=== PATIENT | male | born 1980 | race Caucasian/White ===

== ENCOUNTER 2019-05-16 15:10 | Emergency (ER) | payer OTHER ==
--- NOTE | 2019-05-16 15:19 | ER Report ---
History and Physical Time Seen By MD: 15:16 Hx. of Stated Complaint: finger laceration HPI/ROS CHIEF COMPLAINT: Finger laceration HISTORY OF PRESENT ILLNESS: 38-year-old male patient presents to emergency room with complaint finger laceration. Patient states that he was cutting a piece of wood with a band saw when he slipped and cut his finger in the band saw. Patient states that he has significant amount of pain to the right fourth finger. He states he is not able to flex it. He did apply some pressure to it prior to coming to the emergency room. Patient states that he has a recent tetanus. He denies any fevers, chills, nausea, vomiting or diarrhea. Patient states the pain is throbbing. Patient has not taken any medication for this. He states that the accident occurred approximately 20 minutes prior to arrival. REVIEW OF SYSTEMS: Respiratory: No cough, no dyspnea. Cardiovascular: No chest pain, no palpitations. Gastrointestinal: No vomiting, no abdominal pain. Musculoskeletal: As noted above Allergies: Coded Allergies: No Known Allergies (Verified Allergy, Unknown, 05/16/19) Home Meds Active Scripts Cephalexin 500 Mg Tab (KEFLEX 500 MG TAB) 500 Mg Tablet, 500 MG PO Q6H, #28 TAB Prov:[facility] 05/16/19 Hydrocodone Bit/Acetaminophen (HYDROCODON-ACETAMINOPHEN 5-325) 1 Each Tablet, 1 EACH PO Q4-6H PRN for PAIN, #12 TAB Prov:[facility] 05/16/19 Reported Medications Insulin Lispro 100 Un/Ml Vial (HUMALOG 100 U/ML VIAL) 100 Unit/1 Ml Vial, 100 UNIT SQ SS, VIAL 05/16/19 Insulin Glargine (LANTUS) 100 Unit/Ml Soln, 19 UNIT SUBQ QDAY, ML 05/16/19 Omeprazole (OMEPRAZOLE) 40 Mg Capsule.dr, 40 MG PO QDAY, CAP 05/16/19 Gabapentin (GABAPENTIN) 300 Mg Capsule, 300 MG PO BID, CAPSULE 05/16/19 Baclofen (BACLOFEN) 10 Mg Tablet, 10 MG PO TID PRN for MUSCLE SPASMS, #30 TAB 05/16/19 Buspirone Hcl (BUSPIRONE HCL) 10 Mg Tablet, 5 MG PO BID, #10 TAB 05/16/19 Sertraline Hcl (SERTRALINE HCL) 50 Mg Tablet, 1 TAB PO QDAY, TAB 05/16/19 Past Medical/Surgical History Patient has a past medical history of diabetes. Patient denies any pertinent surgical history. Reviewed Nurses Notes: Yes Constitutional Vital Sign - Last 24 Hours 05/16/19 05/16/19 05/16/19 05/16/19 15:10 15:13 15:17 15:30 Temp 98.5 Pulse 99 101 Resp 22 B/P (MAP) 124/84 (97) 124/84 125/83 (97) Pulse Ox 93 O2 Delivery Room Air 05/16/19 05/16/19 05/16/19 05/16/19 15:40 16:00 16:10 16:15 Pulse 92 91 92 B/P (MAP) 134/88 (103) Pulse Ox 94 93 93 05/16/19 05/16/19 05/16/19 05/16/19 16:30 16:45 17:00 17:15 Pulse 92 93 B/P (MAP) 129/87 (101) 130/86 (101) Pulse Ox 94 98 05/16/19 05/16/19 05/16/19 05/16/19 17:30 17:35 18:00 18:05 Pulse 91 90 B/P (MAP) 137/90 (106) 132/88 (103) 05/16/19 05/16/19 05/16/19 05/16/19 18:30 18:35 19:00 19:30 Pulse 92 B/P (MAP) 130/85 (100) 128/88 (101) 128/76 (93) Physical Exam General Appearance: The patient is alert, has no immediate need for airway protection and no current signs of toxicity. Respiratory: Chest is non tender, lungs are clear to auscultation. Cardiac: regular rate and rhythm Gastrointestinal: Abdomen is soft and non tender, no masses, bowel sounds normal. Musculoskeletal: Neck: Neck is supple and non tender. Extremities have full range of motion and are non tender. Skin: No rashes or lesions. Patient does have significant laceration to the medial aspect of the right third finger. There are tendons which are showing, which appear to be injured. DIFFERENTIAL DIAGNOSIS: After history and physical exam differential diagnosis was considered for laceration, fracture, open fracture, ligamentous injury. Medical Decision Making Data Points Result Diagram: 05/16/19 1542 05/16/19 1542 Laboratory Hematology Test 05/16/19 15:42 Red Blood Count 4.87 M/uL (4.00-5.60) Mean Corpuscular Volume 90.7 fL (80.0-96.0) Mean Corpuscular Hemoglobin 33.5 pg (26.0-33.0) Mean Corpuscular Hemoglobin Concent 36.9 g/dL (32.0-36.0) Red Cell Distribution Width 12.4 % (11.5-14.5) Mean Platelet Volume 7.5 fL (7.2-11.1) Neutrophils (%) (Auto) 68.9 % (39.4-72.5) Lymphocytes (%) (Auto) 21.6 % (17.6-49.6) Monocytes (%) (Auto) 7.1 % (4.1-12.4) Eosinophils (%) (Auto) 1.6 % (0.4-6.7) Basophils (%) (Auto) 0.8 % (0.3-1.4) Nucleated RBC Relative Count (auto) 0.3 /100WBC Neutrophils # (Auto) 5.2 K/uL (2.0-7.4) Lymphocytes # (Auto) 1.6 K/uL (1.3-3.6) Monocytes # (Auto) 0.5 K/uL (0.3-1.0) Eosinophils # (Auto) 0.1 K/uL (0.0-0.5) Basophils # (Auto) 0.1 K/uL (0.0-0.1) Nucleated RBC Absolute Count (auto) 0.02 K/uL Sodium Level 140 mmol/L (137-145) Potassium Level 3.9 mmol/L (3.5-5.0) Chloride Level 103 mmol/L (98-107) Carbon Dioxide Level 25 mmol/L (22-30) Blood Urea Nitrogen 19 mg/dl (9-21) Creatinine 0.80 mg/dl (0.66-1.25) Glomerular Filtration Rate Calc > 60.0 Random Glucose 214 mg/dl (75-110) Calcium Level 9.2 mg/dl (8.4-10.2) Total Bilirubin 0.7 mg/dl (0.2-1.3) Aspartate Amino Transf (AST/SGOT) 49 U/L (0-35) Alanine Aminotransferase (ALT/SGPT) 48 U/L (0-56) Alkaline Phosphatase 91 U/L (0-126) Total Protein 6.9 g/dl (6.3-8.2) Albumin 4.3 g/dl (3.5-5.0) Chemistry Test 05/16/19 15:42 White Blood Count 7.5 k/uL (4.5-11.0) Red Blood Count 4.87 M/uL (4.00-5.60) Hemoglobin 16.3 g/dL (14.0-18.0) Hematocrit 44.2 % (42.0-52.0) Mean Corpuscular Volume 90.7 fL (80.0-96.0) Mean Corpuscular Hemoglobin 33.5 pg (26.0-33.0) Mean Corpuscular Hemoglobin Concent 36.9 g/dL (32.0-36.0) Red Cell Distribution Width 12.4 % (11.5-14.5) Platelet Count 242 K/uL (150-450) Mean Platelet Volume 7.5 fL (7.2-11.1) Neutrophils (%) (Auto) 68.9 % (39.4-72.5) Lymphocytes (%) (Auto) 21.6 % (17.6-49.6) Monocytes (%) (Auto) 7.1 % (4.1-12.4) Eosinophils (%) (Auto) 1.6 % (0.4-6.7) Basophils (%) (Auto) 0.8 % (0.3-1.4) Nucleated RBC Relative Count (auto) 0.3 /100WBC Neutrophils # (Auto) 5.2 K/uL (2.0-7.4) Lymphocytes # (Auto) 1.6 K/uL (1.3-3.6) Monocytes # (Auto) 0.5 K/uL (0.3-1.0) Eosinophils # (Auto) 0.1 K/uL (0.0-0.5) Basophils # (Auto) 0.1 K/uL (0.0-0.1) Nucleated RBC Absolute Count (auto) 0.02 K/uL Glomerular Filtration Rate Calc > 60.0 Calcium Level 9.2 mg/dl (8.4-10.2) Total Bilirubin 0.7 mg/dl (0.2-1.3) Aspartate Amino Transf (AST/SGOT) 49 U/L (0-35) Alanine Aminotransferase (ALT/SGPT) 48 U/L (0-56) Alkaline Phosphatase 91 U/L (0-126) Total Protein 6.9 g/dl (6.3-8.2) Albumin 4.3 g/dl (3.5-5.0) EKG/Imaging Imaging HAND COMPLETE RIGHT HISTORY: Laceration third and fourth digit, band saw ADDITIONAL HISTORY: None. COMPARISON: None. FINDINGS: 3 views were obtained of the right hand. There is disruption of the DIP joint of the fourth digit with a comminuted fracture through the proximal end of the distal phalanx along its radial margin, the fracture fragment is displaced by approximately 1 cm and is in the radial soft tissues. There is also a fracture involving the distal end of the middle phalanx also along the ulnar aspect, there appear to be multiple tiny fragments which are displaced. There is a laceration which extends to the bone. There are multiple punctate radiodensiti es in the soft tissues, difficult to tell whether these are tiny bone fragments or radiopaque foreign bodies. PIP joint is intact. MCP joint is intact. First through third and fifth digits are unremarkable. Metacarpal bones and carpal bones are within normal limits. IMPRESSION: Comminuted fractures involving the distal end of the middle phalanx and proximal end of the distal phalanx around the DIP joint with disruption of the joint and multiple bony fragments as described above. Small punctate radiopaque foreign bodies would be difficult to exclude. Report Dictated By: Odette Zambrano MD at 05/16/2019 4:11 PM Report E-Signed By: Odette Zambrano MD at 05/16/2019 4:16 PM ED Course/Re-evaluation ED Course Patient was admitted to an exam room, history and physical were obtained. Differential diagnoses were considered. On examination lungs are clear, heart is regular, abdomen soft nontender. Patient does have significant laceration to the DIP joint of the right fourth finger. He has a laceration to the tip of the right third finger. Patient states that his tetanus shot is up-to-date, receiving a just 2 months ago. An IV was started, patient received a gram of Ancef. A CBC, CMP were done which were unremarkable. X-ray of the hand was done which shows a fracture to the distal flange and the middle phalange. It appears that the laceration goes right through the joint. I discussed the case with Dr. Swain. He recommended closing it, having patient follow up with Dr. Arias. I did touch base with Dr. Arias's office, and spoke with Dr. Arias. He did review the images and felt that the joint was nonsalvageable. He recommended closing it and having the patient follow-up on Wednesday for surgery. The finger was anesthetized, cleaned and repaired described below. After cleaning it I will noted that the finger itself did appear dusky. It did have a capillary refill of 3 seconds. I touch base with Dr. Cummings, he recommended continue to monitor and they would see if the finger tip is viable on Wednesday. I discussed with the patient who verbalized understanding and agreement with plan. Patient was given a prescription for pain medication as well as antibiotics. Procedure: Laceration repair. Verbal consent was obtained from the patient. The 2 cm and 1 cm laceration on the DIP joint of the right fourth finger and the tip of the right third finger were anesthetized in the usual fashion. The wound was scrubbed, draped and explored to its base with a gloved finger. There appears to be bone fragments that are visible as well as laceration of the tendons. The wound was repaired with 14 simple interrupted sutures using 5-0 Prolene material and 6 simple interrupted sutures using 5-0 Prolene material. The wound repair was simple. The procedure was performed by myself. Decision to Disposition Date: May 16, 2019 Decision to Disposition Time: 18:55 Depart Departure Latest Vital Signs Vital Signs Date Time Temp Pulse Resp B/P (MAP) Pulse Ox O2 Delivery O2 Flow Rate FiO2 05/16/19 19:30 128/76 (93) 05/16/19 18:35 92 05/16/19 17:15 98 05/16/19 15:17 98.5 22 Room Air Impression: Primary Impression: Finger fracture, right Condition: Improved Disposition: HOME OR SELF-CARE Referrals: WILBERT ARIAS MD New Scripts Cephalexin 500 Mg Tab (KEFLEX 500 MG TAB) 500 Mg Tablet 500 MG PO Q6H, #28 TAB Prov: BHANU [facility] [employer] 05/16/19 Hydrocodone Bit/Acetaminophen (HYDROCODON-ACETAMINOPHEN 5-325) 1 Each Tablet 1 EACH PO Q4-6H PRN for PAIN, #12 TAB Prov: BHANU [facility] 05/16/19 Patient Instructions: Finger Laceration (ED) Additional Instructions: Limit activity by pain. Get plenty of rest. Change the dressing as needed. Follow up with Dr. Arias as directed. Take medication to help with the pain. Return to the ER if condition worsens. Take the antibiotics as directed. Problem Qualifiers Primary Impression: Finger fracture, right Encounter type: initial encounter Finger: ring finger Fracture type: open Phalanx: distal Fracture alignment: nondisplaced Qualified Codes: S62.664B - Nondisplaced fracture of distal phalanx of right ring finger, initial encounter for open fracture BHANU [facility] May 16, 2019 15:19
[2019-05-16] MEDS ORDERED: ceFAZolin(*) 1 GM VIAL 1 GM in NS(*) 0.9% 100 ML MINI-BAG 100 ML IV ONE (15:30)
[2019-05-16 15:51] LABS: PLATELET COUNT, AUTOMATED 242 K/uL (150-450)
[2019-05-16] MEDS ORDERED: OMEP40CA48 PO (15:59)
[2019-05-16] MEDS ORDERED: GABA-549 PO (15:59)
[2019-05-16] MEDS ORDERED: BUSP10TA95 PO (15:59)
[2019-05-16] MEDS ORDERED: BACL-1 PO (15:59)
[2019-05-16] MEDS ORDERED: LANI SUBQ (15:59)
[2019-05-16] MEDS ORDERED: SERT-184 PO (15:59)
[2019-05-16] MEDS ORDERED: INSU100V24 SQ (15:59)
--- NOTE | 2019-05-16 16:23 | RADIOLOGY IMAGING REPORT ---
[place] [facility] [place]: Helio Case : 1980 MR: [id number] V: [id number] EXAM DATE: ORDERING PHYSICIAN: BHANU [facility] TECHNOLOGIST: [place] [facility] [place] : 1980 Visit/Account:[id number] Date of Sevice: 05/16/2019 HAND COMPLETE RIGHT HISTORY: Laceration third and fourth digit, band saw ADDITIONAL HISTORY: None. COMPARISON: None. FINDINGS: 3 views were obtained of the right hand. There is disruption of the DIP joint of the fourth digit wi th a comminuted fracture through the proximal end of the distal phalanx along its radial margin, the fracture fragment is displaced by approximately 1 cm and is in the radial soft tissues. There is als o a fracture involving the distal end of the middle phalanx also along the ulnar aspect, there appear to be multiple tiny fragments which are displaced. There is a laceration which extends to the bone. There are multiple punctate radiodensities in the soft tissues, difficult to tell whether these are tiny bone fragments or radiopaque foreign bodies. PIP joint is intact. MCP joint is intact. First through third and fifth digits are unremarkable. Metacarpal bones and carpal bones are within normal limits. IMPRESSION: Comminuted fractures involving the distal end of the middle phalanx and proximal end of the distal ph alanx around the DIP joint with disruption of the joint and multiple bony fragments as described edmund rae. Small punctate radiopaque foreign bodies would be difficult to exclude. Report Dictated By: Odette Zambrano MD at 05/16/2019 4:11 PM Report E-Signed By: Odette Zambrano MD at 05/16/2019 4:16 PM WSN:[id number]
[2019-05-16] MEDS ORDERED: HYDR-385 PO (18:51)
[2019-05-16] MEDS ORDERED: CEPH500T7 PO (18:51)
[2019-05-16 19:30] VITALS: BP 128/76
== END 2019-05-16 19:44 | disposition home or self-care (01) ==
LOC: ER 16:05
DX: S62.664B Nondisplaced fracture of distal phalanx of right ring finger, initial encounter for open fracture (principal)
CPT/HCPCS: 12002; 73130; 85025; 96365; 99283; J0690; 82040; 82247; 82310; 82374; 82435; 82565; 82947; 84075; 84132; 84155; 84295; 84450; 84460; 84520

== ENCOUNTER → 2019-05-18 | Outpatient (CLI) | payer OTHER ==
[~2019-05-18] MED LIST: BACL-1 PO; BUSP10TA95 PO; CEPH500T7 PO; GABA-549 PO; HYDR-385 PO; INSU100V24 SQ; LANI SUBQ; OMEP40CA48 PO; SERT-184 PO
[2019-05-18 15:59] LABS: PLATELET COUNT, AUTOMATED 234 K/uL (150-450)
== END ==
LOC: LAB 15:26
PROVIDERS: ATTEND Anesthesiology
DX: Z01.812 Encounter for preprocedural laboratory examination (principal); S69.91XA Unspecified injury of right wrist, hand and finger(s), initial encounter; W31.2XXA Contact with powered woodworking and forming machines, initial encounter
CPT/HCPCS: 36415; 82040; 82247; 82310; 82374; 82435; 82565; 82947; 83036; 84075; 84132; 84155; 84295; 84450; 84460; 84520; 85025

== ENCOUNTER 2019-06-19 18:49 | Emergency (ER) | payer OTHER ==
--- NOTE | 2019-06-19 18:54 | ER Report ---
History and Physical Time Seen By MD: 18:50 HPI/ROS CHIEF COMPLAINT: finger infection HISTORY OF PRESENT ILLNESS: This is a 38 year old male. He has had a finger injury and was seeing Dr. Bellamy. He has been doing well and has been improving. At first, the thought was that he would loose the finger. Last appointment on was doing good. Taken off of Cephalexin at that visit. The last 24 hours, redness, warmth, swelling and pain have increased, spreading up the finger. The area of dark, necrotic tissue is the same, perhaps more moist. No fevers or chills noted. Dr. Bellamy is out of town this week, the patient has an appointment next week on . Allergies: Coded Allergies: No Known Allergies (Verified Allergy, Unknown, 06/19/19) Home Meds Active Scripts Amoxicillin/Pot Clav 875-125 Mg Tab (AUGMENTIN 875-125 TABLET) 1 Each Tablet, 1 TAB PO Q12H, #20 TAB 0 Refills Prov:OLGA PATTERSON MD 06/19/19 Reported Medications Oxycodone Hcl (OXYCONTIN) 10 Mg Tab.er.12h, 10 MG PO Q12H, TAB 06/19/19 Insulin Lispro 100 Un/Ml Vial (HUMALOG 100 U/ML VIAL) 100 Unit/1 Ml Vial, 100 UNIT SQ SS, VIAL 05/16/19 Insulin Glargine (LANTUS) 100 Unit/Ml Soln, 19 UNIT SUBQ QDAY, ML 05/16/19 Omeprazole (OMEPRAZOLE) 40 Mg Capsule.dr, 40 MG PO QDAY, CAP 05/16/19 Gabapentin (GABAPENTIN) 300 Mg Capsule, 300 MG PO BID, CAPSULE 05/16/19 Baclofen (BACLOFEN) 10 Mg Tablet, 10 MG PO TID PRN for MUSCLE SPASMS, #30 TAB 05/16/19 Buspirone Hcl (BUSPIRONE HCL) 10 Mg Tablet, 5 MG PO BID, #10 TAB 05/16/19 Sertraline Hcl (SERTRALINE HCL) 50 Mg Tablet, 1 TAB PO QDAY, TAB 05/16/19 Discontinued Scripts Cephalexin 500 Mg Tab (KEFLEX 500 MG TAB) 500 Mg Tablet, 500 MG PO Q6H, #28 TAB Prov:BHANU [facility] 7/9/19 Hydrocodone Bit/Acetaminophen (HYDROCODON-ACETAMINOPHEN 5-325) 1 Each Tablet, 1 EACH PO Q4-6H PRN for PAIN, #12 TAB Prov:BHANU [facility] [employer] 05/16/19 Reviewed Nurses Notes: Yes Constitutional Vital Sign - Last 24 Hours 06/19/19 06/19/19 06/19/19 06/19/19 18:59 19:00 19:04 19:19 Temp 98.6 Pulse 73 80 75 Resp 14 B/P (MAP) 122/84 135/84 (101) Pulse Ox 94 92 93 O2 Delivery Room Air 06/19/19 06/19/19 06/19/19 06/19/19 19:34 19:49 20:00 20:04 Pulse 76 71 73 B/P (MAP) 124/85 (98) Pulse Ox 93 94 94 06/19/19 06/19/19 06/19/19 06/19/19 20:19 20:30 20:45 21:00 Pulse 70 71 79 B/P (MAP) 122/74 (90) 124/83 (97) Pulse Ox 92 95 94 91 Physical Exam General: Alert, no acute distress. Skin: Necrotic skin overlying the wound with sutures in place. Moist, but no purulence noted. Musculoskeletal: Painful, and the DIP with screw fixation, but otherwise normal movement of the finger. Neuro: No change in sensation of the finger, some deficits from injury, increase pain. Cardio: Otherwise normal peripheral perfusion. Medical Decision Making Data Points Result Diagram: 06/19/19190906/19/191909 Laboratory Hematology Test 06/19/19 19:10 White Blood Count 5.3 k/uL (4.5-11.0) Red Blood Count 4.63 M/uL (4.00-5.60) Hemoglobin 15.1 g/dL (14.0-18.0) Hematocrit 42.0 % (42.0-52.0) Mean Corpuscular Volume 90.8 fL (80.0-96.0) Mean Corpuscular Hemoglobin 32.7 pg (26.0-33.0) Mean Corpuscular Hemoglobin Concent 36.0 g/dL (32.0-36.0) Red Cell Distribution Width 12.0 % (11.5-14.5) Platelet Count 200 K/uL (150-450) Mean Platelet Volume 7.2 fL (7.2-11.1) Neutrophils (%) (Auto) 58.5 % (39.4-72.5) Lymphocytes (%) (Auto) 28.9 % (17.6-49.6) Monocytes (%) (Auto) 8.7 % (4.1-12.4) Eosinophils (%) (Auto) 2.7 % (0.4-6.7) Basophils (%) (Auto) 1.2 % (0.3-1.4) Nucleated RBC Relative Count (auto) 0.2 /100WBC Neutrophils # (Auto) 3.1 K/uL (2.0-7.4) Lymphocytes # (Auto) 1.5 K/uL (1.3-3.6) Monocytes # (Auto) 0.5 K/uL (0.3-1.0) Eosinophils # (Auto) 0.1 K/uL (0.0-0.5) Basophils # (Auto) 0.1 K/uL (0.0-0.1) Nucleated RBC Absolute Count (auto) 0.01 K/uL Erythrocyte Sedimentation Rate 1 mm/HOUR (0-15) Chemistry Test 06/19/19 19:10 Sodium Level 135 mmol/L (137-145) Potassium Level 3.9 mmol/L (3.5-5.0) Chloride Level 100 mmol/L (98-107) Carbon Dioxide Level 26 mmol/L (22-30) Blood Urea Nitrogen 16 mg/dl (9-21) Creatinine 0.80 mg/dl (0.66-1.25) Glomerular Filtration Rate Calc > 60.0 Random Glucose 210 mg/dl (75-110) Lactate 1.0 mmol/L (0.7-2.1) Calcium Level 9.1 mg/dl (8.4-10.2) Total Bilirubin 0.9 mg/dl (0.2-1.3) Aspartate Amino Transf (AST/SGOT) 27 U/L (0-35) Alanine Aminotransferase (ALT/SGPT) 40 U/L (0-56) Alkaline Phosphatase 83 U/L (0-126) C-Reactive Protein < 0.5 mg/dl (<1.0) Total Protein 6.8 g/dl (6.3-8.2) Albumin 4.1 g/dl (3.5-5.0) EKG/Imaging Imaging EXAMINATION: Three views of the right fourth finger. HISTORY: Finger infection COMPARISON: 05/16/2019. FINDINGS: Since the prior exam there has been screw fixation across the DIP joint of the right fourth finger for prior traumatic injury with fractures involving the head of the middle phalanx and base of the distal phalanx. Improved alignment. There is osseous irregularity about the margins of the DIP joint which may be posttraumatic and postsurgical in nature. Superimposed infection cannot be excluded on this exam. There is some adjacent punctate foreign body debris in the soft tissues. Diffuse soft tissue swelling. IMPRESSION: 1. Screw fixation across the DIP joint of the right fourth finger. There are underlying posttraumatic and postsurgical changes involving the head of the middle phalanx and base of the distal phalanx. Superimposed infection cannot be excluded radiographically. 2. Surrounding soft tissue swelling with some punctate radiopaque debris. Report Dictated By: Sanchez Soler MD at 06/19/2019 8:35 PM ED Course/Re-evaluation Clinical Indication for ER IV: Hydration, IV Access ED Course Labs obtained, including blood cultures, wound culture, CBC, CMP, CRP, and ESR, all unremarkable and reviewed with the patient. Imaging obtained. Discussed the case with Dr. Zhang, park recreation manager for [facility]. We are giving him a dose of Rocephin 1g IV, and then starting Augmentin. No debridement done, but follow-up to be done at [facility] tomorrow. See instructions below. Decision to Disposition Date: Jun 19, 2019 Decision to Disposition Time: 21:05 Depart Departure Latest Vital Signs Vital Signs Date Time Temp Pulse Resp B/P (MAP) Pulse Ox O2 Delivery O2 Flow Rate FiO2 06/19/19 21:00 79 124/83 (97) 91 06/19/19 18:59 98.6 14 Room Air Impression: Primary Impression: Cellulitis of finger of right hand Condition: Improved Disposition: HOME OR SELF-CARE New Scripts Amoxicillin/Pot Clav 875-125 Mg Tab (AUGMENTIN 875-125 TABLET) 1 Each Tablet 1 TAB PO Q12H, #20 TAB 0 Refills Prov: OLGA PATTERSON MD 06/19/19 Patient Instructions: Cellulitis (ED) Additional Instructions: Take the antibiotic Augmentin 875/125 twice a day. Call [facility] tomorrow and they will likely have you see Dr. Swain while Dr. Bellamy is out of town. Keep taking the pain medicine prescribed by Dr. Bellamy as needed for pain. OLGA PATTERSON MD Jun 19, 2019 18:54
[2019-06-19] MEDS ORDERED: OXYC-823 PO (19:02)
[2019-06-19 19:24] LABS: PLATELET COUNT, AUTOMATED 200 K/uL (150-450)
[2019-06-19] MEDS ORDERED: AMOX/CLAV 875 MG TAB PO ONE ×2 (20:35→20:40)
[2019-06-19] MEDS ORDERED: cefTRIAXone(*) 1 GM VIAL 1 GM in NS(*) 0.9% 100 ML MINI-BAG 100 ML IVPB ONE (20:35)
--- NOTE | 2019-06-19 20:46 | RADIOLOGY IMAGING REPORT ---
FACILITY: [facility] [place] PATIENT NAME: Helio Case : 1980 MR: [id number] V: [id number] EXAM DATE: ORDERING PHYSICIAN: OLGA PATTERSON TECHNOLOGIST: [place] [facility] [place]io [place] : 1980 Visit/Account:[id number] Date of Sevice: 06/19/2019 EXAMINATION: Three views of the right fourth finger. HISTORY: Finger infection COMPARISON: 05/16/2019. FINDINGS: Since the prior exam there has been screw fixation across the DIP joint of the right fourth finger fo r prior traumatic injury with fractures involving the head of the middle phalanx and base of the dist al phalanx. Improved alignment. There is osseous irregularity about the margins of the DIP joint whic h may be posttraumatic and postsurgical in nature. Superimposed infection cannot be excluded on this exam. There is some adjacent punctate foreign body debris in the soft tissues. Diffuse soft tissue sw elling. IMPRESSION: 1. Screw fixation across the DIP joint of the right fourth finger. There are underlying posttraumatic and postsurgical changes involving the head of the middle phalanx and base of the distal phalanx. Hernández perimposed infection cannot be excluded radiographically. 2. Surrounding soft tissue swelling with some punctate radiopaque debris. Report Dictated By: Sanchez Soler MD at 06/19/2019 8:35 PM Report E-Signed By: Sanchez Soler MD at 06/19/2019 8:38 PM WSN:[id number]
[2019-06-19] MEDS ORDERED: AMOX-559 PO (21:11)
[2019-06-19 21:30] VITALS: BP 123/82
== END 2019-06-19 21:54 | disposition home or self-care (01) ==
LOC: ER 19:07
DX: L03.011 Cellulitis of right finger (principal)
CPT/HCPCS: 36415; 73140; 83605; 85025; 85651; 86140; 87040; 87070; 87077; 87186; 96365; 99283; J0696; 82040; 82247; 82310; 82374; 82435; 82565; 82947; 84075; 84132; 84155; 84295; 84450; 84460; 84520